=== PATIENT | male | born 1975 | race Caucasian/White ===

== ENCOUNTER → 2020-05-12 14:22 | Outpatient (CLI) | payer OTHER, MEDICAID, SELFPAY | PROVIDERS: Visit Provider Specialist | DX: N99.81 Other intraoperative complications of genitourinary system (principal) | CPT/HCPCS: 51705; 87077; 87086; 87186; 99213 ==

== ENCOUNTER → 2020-06-23 16:07 | Outpatient (CLI) | payer OTHER, MEDICAID, SELFPAY | PROVIDERS: Visit Provider Specialist | DX: N39.0 Urinary tract infection, site not specified (principal); N99.81 Other intraoperative complications of genitourinary system | CPT/HCPCS: 51702; 87086 ==

== ENCOUNTER → 2020-08-03 14:40 | Outpatient (CLI) | payer OTHER, MEDICAID, SELFPAY | PROVIDERS: Visit Provider Specialist | DX: N99.81 Other intraoperative complications of genitourinary system (principal); Z93.59 Other cystostomy status | CPT/HCPCS: 51702; 87077; 87086; 87186 ==

== ENCOUNTER → 2020-08-31 15:23 | Outpatient (CLI) | payer OTHER, MEDICAID, SELFPAY | PROVIDERS: Visit Provider Specialist | DX: N39.0 Urinary tract infection, site not specified (principal); Z46.6 Encounter for fitting and adjustment of urinary device | CPT/HCPCS: 51702; 87077; 87086; 87185; 87186 ==

== ENCOUNTER → 2020-09-29 13:26 | Outpatient (CLI) | payer OTHER, MEDICAID, SELFPAY | PROVIDERS: PCP Internal Medicine; Referring Provider Specialist; Visit Provider Specialist | DX: N99.81 Other intraoperative complications of genitourinary system (principal); Z53.20 Procedure and treatment not carried out because of patient's decision for unspecified reasons ==

== ENCOUNTER → 2020-10-05 13:05 | Outpatient (CLI) | payer OTHER, MEDICAID, SELFPAY ==
--- NOTE | 2020-10-05 13:10 | DI.CT.S_ITS ---
PROCEDURE: CT PELVIS W CON INDICATIONS: intraoperative bladder injury TECHNIQUE: Both before and after gravity instillation of 10% Isovue contrast solution into the bladder through a Treviño catheter, 5 mm axial images acquired from the bladder dome to the symphysis. 5 mm thick coronal and sagittal reformats were acquired. For radiation dose reduction, the following was used: automated exposure control, adjustment of mA and/or kV according to patient size. Approximately 200 cc of the dilute bladder contrast agent was instilled through the suprapubic catheter. The study shows no evidence of bladder extravasation of contrast either freely into the peritoneal space or into a contained extraluminal portion of the extraperitoneal adjacent soft tissues. COMPARISON: None. FINDINGS: Image quality: Excellent. Genitourinary: Bladder wall thickness is normal. No contrast extravasation. Distal portions of both ureters are normal in caliber. Prior prostatectomy appears to have been performed. Note was made of reflux of a small amount of contrast into what appears to be the left seminal vesicle. Peritoneum and bowel: Unenhanced bowel loops are normal in caliber and wall thickness. No pathologic free pelvic fluid. Ostomy site left paramedian periumbilical area. Nodes and vessels: No iliac, pelvic, or inguinal adenopathy by size criteria. Iliac vessels are normal in size. Bones: No suspicious bony lesions. Miscellaneous: No inguinal hernias. IMPRESSION: A suprapubic catheter is present from right lower pelvis body wall anteriorly, which is in expected position within the bladder lumen. The bladder was filled with dilute contrast, and shows normal bladder margins. There is no suspicion for contained or free bladder leak. Note is made of what appears to be reflux of a small amount of contrast into the left seminal vesicle in this patient who appears to have undergone prior prostatectomy. Note is made of an ostomy site at the left paramedian periumbilical anterior body wall. No abnormality is found in this area. No mass lesion identified, no adenopathy seen. Dictated by: Saeed Prater M.D. on 10/05/2020 at 14:12 Approved by: Saeed Prater M.D. on 10/05/2020 at 14:19
== END ==
PROVIDERS: PCP Internal Medicine; Referring Provider Specialist; Visit Provider Specialist
DX: N99.81 Other intraoperative complications of genitourinary system (principal); Z96.0 Presence of urogenital implants
CPT/HCPCS: 72193